=== PATIENT | female | born 1960 | race Caucasian/White ===

== ENCOUNTER 2020-05-07 11:55 | Emergency (ER) | payer OTHER ==
[~2020-05-07] VITALS: Ht 152.4 cm; Wt 51.3 kg
[2020-05-07] MEDS ORDERED: LORAZEPAM 0.5 MG TABLET PO ONE (12:00)
[2020-05-07] MEDS ORDERED: LORAZEPAM 2 MG/1 ML VIAL IV ONE (12:00)
[2020-05-07] MEDS ORDERED: IV NORMAL SALINE 1000 ML BAG IV ONE (12:00)
[2020-05-07] MEDS ORDERED: LORAZEPAM 2 MG/1 ML VIAL ONE (12:05)
--- NOTE | 2020-05-07 12:16 | NUR ---
PT IS IN ROOM #1B. DR COLUNGA EVALUATED THE PT.
[2020-05-07 12:37] LABS: BASOPHILS % (AUTO) 0.6 % (0.0-2.0); EOSINOPHILS # (AUTO) 0.1 K/uL (0.0-0.7); EOSINOPHILS % (AUTO) 1.2 % (0.0-7.0); HEMATOCRIT 40.5 % (31.2-41.9); LYMPHOCYTES # (AUTO) 2.2 K/uL (20.0-40.0); LYMPHOCYTES % (AUTO) 27.5 % (20.5-51.5); MEAN CORPUSCULAR HEMOGLOBIN 29.8 uug (24.7-32.8); MEAN CORPUSCULAR HGB CONC 35 g/dL (32.3-35.6); MEAN CORPUSCULAR VOLUME 86.1 fL (75.5-95.3); MONOCYTES # (AUTO) 0.7 K/uL (2.0-10.0); MONOCYTES % (AUTO) 9.1 % (0.0-11.0); NEUTROPHILS # (AUTO) 4.8 K/uL (1.8-8.9); NEUTROPHILS % (AUTO) 61.6 % (38.5-71.5); PLATELET COUNT (AUTO) 325 K/uL (179-408); WHITE BLOOD COUNT (AUTO) 7.9 K/uL (3.8-11.8)
[2020-05-07 12:42] LABS: CREATININE 0.7 mg/dL (0.6-1.3); POTASSIUM 3.9 mmol/L (3.5-5.1)
[2020-05-07] MEDS ORDERED: IBUPROFEN 600 MG TABLET ONE (12:44)
[2020-05-07] MEDS ORDERED: IBUPROFEN 600 MG TABLET PO ONE (12:45)
[2020-05-07 12:46] LABS: ETHANOL < 3 MG/DL (0-0)
[2020-05-07 13:24] LABS: *AMPHETAMINE, URINE NEGATIVE (NEGATIVE); *BARBITURATE, URINE NEGATIVE (NEGATIVE); *CANNABINOID, URINE POSITIVE (NEGATIVE); *COCCAINE, URINE NEGATIVE (NEGATIVE); *OPIATE, URINE NEGATIVE (NEGATIVE); *PHENCYCLIDINE SCREEN,URINE NEGATIVE (NEGATIVE)
--- NOTE | 2020-05-07 14:17 | NUR ---
PT WAS EVALUATED BY RN CARDIAC REHAB SHAKEH. PT WAS EVALUATED BY DR COLUNGA. PT REFUSED TO BE PLACED IN DETENTION. HOMELESS RESOURSES PAKAGE WAS GIVEN TO THE PT BY RN CARDIAC REHAB SHAKEH. PT WAS D/C'd FROM ER. D/C INSTRUCTIONS GIVEN TO THE PT BY DR COLUNGA.
[2020-05-07 14:27] VITALS: BP 142/78
--- NOTE | 2020-05-07 15:03 | NUR ---
2:00pm: SW arrived to the ED for SS consultation. SW met with Dr. Terrell and discussed patient's needs. SW then met with the patient, who was in her assigned ED bed. Patient was asleep, but woke up to speak with this SW. Patient was receptive to speaking with this SW. Patient is a 59 year old female, alert, oriented x 4. Patient states she was evicted from her place of residence a few days ago. Patient expressed anger while describing her eviction, stating that she has not had any place to stay since her eviction. Patient stated coming to the ED because she was feeling stressed, and experiencing difficulty sleeping. Patient also discussed history of other stressors in her life, unrelated to her ED visit today, and demanded that this SW and ED physician call the police and ask why they haven't helped her in the past. SW allowed the patient to express her thoughts and feelings, validated patients feelings, and provided the patient with education on the role of this SW pertaining to patient's visit to the ED today. Patient continued to express frustration. SW once again reiterated how the SW could assist the patient today for her ED visit, and discussed some of the community resources that SW could provide the patient to further assist her with her concerns and psychosocial needs. Patient's tone of voice became loud and more angry, and patient stated "I don't want shelters!" SW then discussed some of the other community resources available to the patient, and offered to provide patient with a homeless resource packet that patient can reference in the future if she changes her mind. Patient then stated that she will take the resource packet. Patient asked this SW for money so she could buy gas for her car, and SW explained to the patient that the [facility] does not provide money to patients, however SW could provide patient with a one-day metro pass, if patient wanted one, which can be a temporary form of transportation. Patient once again became upset and declined the metro pass, demanding money instead. SW once again explained to the patient that this was something that the hospital could not provide the patient. SW stated that SW will put the resource packet together for the patient. Patient expressed agreement. LISETTE then met with Dr. Terrell and SEEMA Pickering and reported all above to them. Dr. Terrell was in agreement with the plan of care. LISETTE returned to the patient's room and provided patient with the following resources: the [phone] [facility] Winter Mcfp Program that provides locations of the shelters in Service Areas 1 thru 8, the [facility] homeless directory which provides a list of places that individuals can go to throughout the week for hot meals, sack lunches, food pantries, and showers; a list of mental health clinics: [facility] [address] [place] [address], ; [facility] [address] [place] [address], ; [facility] [address] [place] [address], ; a list of medical clinics: [facility] [address], [place]. [place], ; [facility] [address], [address], [place] [address]; [facility] [address] [place] [address], ; and a list of substance abuse programs: [facility] Substance Abuse Self-helpline ; [facility] ; [facility] ; [facility] ; [facility] ; [facility] [phone]; [facility] [phone]. SW also provided patient with information on locations of pharmacies. In addition to the above listed resources, SW provided information on additional locations for hygiene and food: [facility] [address] [place]; [facility] [address] [facility],. [place]; and [facility] [address], [place]; Food Pant[facility] at [facility] [address]; [facility] [address] [facility] [place]; [facility] [address]; and [facility] [address]. Patient signed the Homeless Patient Waiver Form, and SW filed the form in the patient's ED chart. Nursing had provided patient with a meal. Patient's clothes were clean and appropriate, and patient declined additional clothing. No further SS interventions needed at this time.
== END 2020-05-07 14:28 | disposition home or self-care (01) ==
LOC: ER 11:55
DX: F41.1 Generalized anxiety disorder (principal); R07.9 Chest pain, unspecified; Z59.0 Homelessness; R00.0 Tachycardia, unspecified; F43.0 Acute stress reaction; I70.0 Atherosclerosis of aorta; I45.10 Unspecified right bundle-branch block; I10 Essential (primary) hypertension
CPT/HCPCS: 36415; 71045; 80048; 80307 ×2; 84484; 85025; 93005; 96361; 96374; 99285; J2060; 70030-TC; A4663; G0480; J7030

== ENCOUNTER 2020-07-17 10:47 | Emergency (ER) | payer MEDICARE, OTHER ==
[~2020-07-17] VITALS: Ht 152.4 cm; Wt 51.3 kg
--- NOTE | 2020-07-17 11:03 | NUR ---
PT WAS EVALUATED BY DR ASHLEY. PT WAS D/C'D TO HOME. D/C INSTRUCTIONS GIVEN TO THE PT BY DR ASHLEY.
[2020-07-17 11:05] VITALS: BP 136/81
== END 2020-07-17 11:05 | disposition home or self-care (01) ==
LOC: ER 10:47
DX: R19.7 Diarrhea, unspecified (principal); Z76.0 Encounter for issue of repeat prescription; I10 Essential (primary) hypertension; Z59.0 Homelessness; F41.9 Anxiety disorder, unspecified; F17.200 Nicotine dependence, unspecified, uncomplicated
CPT/HCPCS: A4663

== ENCOUNTER 2020-12-11 10:51 | Emergency (ER) | payer OTHER ==
[~2020-12-11] VITALS: Ht 152.4 cm; Wt 51.3 kg
--- NOTE | 2020-12-11 11:21 | NUR ---
PT IS IN ROOM #1B. DR SHULTZ EVALUATED THE PT. PT BECOME AGITATED AND VERBALY ABUSIVE TO ER MD AND ER STAFF. PT STATED TO WALK AROUN THE ER HALLWAY AREA AND NOT FOLLOVING REQUEST TO STAY IN HER ROOM. KELLY CANO WAS CALLED BY DR WALDRON. PT WAS MEDICATED ACCORDING TO DR WALDRON ORDERS. PT TOLERATED TO MEDICATION WITHOUT COMPLICATIONS. PT IS RESTING IN BAD COMFORTABLY NOW. NO S/S OF ACUTE DISTRESS. CONTINUE TO MONITOR THE PT.
[2020-12-11] MEDS: diphenhydrAMINE 50 MG/1 ML VIAL IM ONE (11:30)
[2020-12-11] MEDS ORDERED: LORAZEPAM 2 MG/1 ML VIAL ONE (11:30)
[2020-12-11] MEDS ORDERED: HALOPERIDOL LACTATE 5 MG/1 ML VIAL IM ONE ×2 (11:30)
[2020-12-11] MEDS ORDERED: LORAZEPAM 2 MG/1 ML VIAL IV ONE (11:30)
[2020-12-11] MEDS ORDERED: diphenhydrAMINE 50 MG/1 ML VIAL IM ONE (11:30)
[2020-12-11] MEDS ORDERED: LORAZEPAM 2 MG/1 ML VIAL IM ONE (11:30)
[2020-12-11] MEDS ORDERED: HALOPERIDOL LACTATE 5 MG/1 ML VIAL ONE (11:31)
[2020-12-11] MEDS ORDERED: diphenhydrAMINE 50 MG/1 ML VIAL ONE (11:31)
--- NOTE | 2020-12-11 11:53 | NUR ---
Evening Or Night Nurse Supervisor note: 11:20am: SW attempted to speak with this patient, however patient presents shouting, combative, agitated, using profanity. Security was called. SW will remain available for this patient, as needed.
[2020-12-11 12:42] LABS: BASOPHILS # (AUTO) 0.1 K/uL (0.0-8.0); BASOPHILS % (AUTO) 1.5 % (0.0-2.0); EOSINOPHILS # (AUTO) 0.1 K/uL (0.0-0.7); EOSINOPHILS % (AUTO) 1.5 % (0.0-7.0); HEMATOCRIT 38.8 % (31.2-41.9); LYMPHOCYTES # (AUTO) 1.6 K/uL (20.0-40.0); LYMPHOCYTES % (AUTO) 18.8 % (20.5-51.5); MEAN CORPUSCULAR HEMOGLOBIN 29.5 uug (24.7-32.8); MEAN CORPUSCULAR HGB CONC 34 g/dL (32.3-35.6); MEAN CORPUSCULAR VOLUME 88.1 fL (75.5-95.3); MONOCYTES # (AUTO) 0.6 K/uL (2.0-10.0); MONOCYTES % (AUTO) 7.3 % (0.0-11.0); NEUTROPHILS # (AUTO) 5.9 K/uL (1.8-8.9); NEUTROPHILS % (AUTO) 70.9 % (38.5-71.5); PLATELET COUNT (AUTO) 269 K/uL (179-408); WHITE BLOOD COUNT (AUTO) 8.4 K/uL (3.8-11.8)
[2020-12-11 12:49] LABS: CARBON DIOXIDE 24 mmol/L (21-32); CHLORIDE 106 mmol/L (98-107); CREATININE 0.5 mg/dL (0.6-1.3); GLUCOSE 99 mg/dL (74-106); POTASSIUM 3.8 mmol/L (3.5-5.1); UREA NITROGEN, BLOOD 15 mg/dL (7-18)
[2020-12-11 13:01] LABS: ETHANOL < 3 MG/DL (0-0)
[2020-12-11 13:03] LABS: ALANINE AMINOTRANSFERASE 13 U/L (14-59); ALKALINE PHOSPHATASE 67 U/L (50-136); ASPARTATE AMINOTRANSFERASE 13 U/L (15-37); BILIRUBIN,DIRECT 0.1 mg/dL (0.0-0.2); BILIRUBIN,TOTAL 0.2 mg/dL (0.2-1.0); TOTAL PROTEIN, SERUM 6.7 g/dL (6.4-8.2)
[2020-12-11 13:04] LABS: ACETAMINOPHEN < 2.0 ug/mL (10-30)
[2020-12-11] MEDS: KETOROLAC TROMETHAMINE 30 MG INJ IM ONE ×2 (13:15→13:38)
[2020-12-11] MEDS ORDERED: KETOROLAC TROMETHAMINE 30 MG INJ ONE (14:22)
--- NOTE | 2020-12-11 15:17 | NUR ---
MECHANIC INSULATOR ALEXIS EVALUATED THE PT. DR WALDRON TALKED TO THE PT. PT REFUSED TO SIGN HOMLESS PAKAGE PAPERWORK AND REFUSED TO SIGN DISCHARGE INSTRUCTIONS. PT PICKED UP MEDICAL PRESCRIPTIONS ONLY AND [facility] . GAIT WAS STABLE. NO S/S OF ACUTE DISTRESS. NO N/V, NO SOB, PT DENIES PAIN.
[2020-12-11 15:25] VITALS: BP 129/81
--- NOTE | 2020-12-11 15:57 | NUR ---
2:55pm: This SW followed-up with the patient. Patient is a 60 year old female. Patient is alert and oriented, was lying down in her assigned ED bed with her eyes closed, but opened them when this SW called out patient's name. Patient sat up in bed. Patient states she is homeless, and lives in her car. SW assessed for the need of community resources and offered to provide patient with a homeless resource packet. Patient refused shelters, and stated that she wants to speak with an APS group social worker. Patient did not elaborate reason. Patient assessed for immediate signs of abuse, and patient denied this. Patient just stated "I only want to speak with an APS group social worker". SW offered to provide patient with the phone number to APS and patient expressed agreement. SW once again offered community resources for the homeless, and patient said "ok". Patient then closed her eyes and layed back down. 3:10pm: SW returned to meet with the patient in order to provide requested resources. This SW was accompanied by SEEMA Cain. SW provided patient with the homeless resource packet, and the phone number to [facility]. Patient took the paperwork, looked at it, and returned it to this SW, stating "I don't want any of this". SW reminded the patient that this was the information patient had requested, but patient once again stated "I don't want it". Patient refused to sign the Homeless Patient Waiver form. Patient refused discharge instructions being provided by RN. Patient became agitated again, and began speaking with a loud voice. Patient's concerns were addressed by SEEMA Cain and Dr. Starks. Patient left [facility] ED with stable gait. (see RN notes).
== END 2020-12-11 15:28 | disposition home or self-care (01) ==
LOC: ER 10:51
DX: J06.9 Acute upper respiratory infection, unspecified (principal); Z20.822 Contact with and (suspected) exposure to COVID-19; Z59.0 Homelessness; F23 Brief psychotic disorder; F17.210 Nicotine dependence, cigarettes, uncomplicated; I10 Essential (primary) hypertension; Z76.0 Encounter for issue of repeat prescription; F32.9 Major depressive disorder, single episode, unspecified; F41.9 Anxiety disorder, unspecified
CPT/HCPCS: 36415; 71045; 80048; 80076; 80299; 80320; 85025; 87426; 93005; 96372 ×2; 99285; J1200; J1630; J1885; J2060; U0003; A4663; G0480